=== PATIENT | female | born 1985 | race Two or more races ===

== ENCOUNTER 2019-12-30 17:04 | Inpatient (IN) | payer OTHER ==
[~2019-12-30] VITALS: Ht 157.5 cm; Wt 77.1 kg
[2019-12-30] MEDS ORDERED: PRENATAL CAPLE1 EAC1 PO (21:08)
== END 2020-01-01 15:10 | disposition home or self-care (01) | DRG 807 ==
LOC: LDR 17:04 → SURG-SUITE 12-31 00:08
PROVIDERS: ADMIT Obstetrics & Gynecology
PROC: 10E0XZZ Delivery of Products of Conception, External Approach (ICD-10-PCS; principal; 2019-12-30)
PROC: 4A1HXCZ Monitoring of Products of Conception, Cardiac Rate, External Approach (ICD-10-PCS; 2019-12-30)
DX: O42.913 Preterm premature rupture of membranes, unspecified as to length of time between rupture and onset of labor, third trimester (principal); Z37.0 Single live birth; Z3A.35 35 weeks gestation of pregnancy